=== PATIENT | female | born 1955 | race Two or more races ===

== ENCOUNTER 2019-05-27 08:52 | Inpatient (IN) | payer MEDICAID, OTHER ==
[~2019-05-27] VITALS: Ht 160 cm; Wt 69.2 kg
[2019-05-27] MEDS ORDERED: aspirin PO (09:21)
[2019-05-27] MEDS ORDERED: IBUP-1902 PO (09:21)
--- NOTE | 2019-05-27 09:29 | NUR ---
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
[2019-05-27 09:44] LABS: BASOPHILS % (AUTO) 1 % (0-1); EOSINOPHILS # (AUTO) 0.17 x10^3/uL (0-0.4); EOSINOPHILS % (AUTO) 1 % (1-7); LYMPHOCYTES # (AUTO) 3.07 x10^3/uL (1-3.4); LYMPHOCYTES % (AUTO) 25 % (22-44); MD NO; MEAN CORPUSCULAR HEMOGLOBIN 28.8 pg (27.0-34.8); MEAN CORPUSCULAR HGB CONC 33.1 g/dL (32.4-35.8); MEAN CORPUSCULAR VOLUME 86.9 fL (80-100); MEAN PLATELET VOLUME 7.9 fL (7.4-10.4); MONOCYTES # (AUTO) 0.82 x10^3/uL (0.2-0.8); MONOCYTES % (AUTO) 7 % (2-9); NEUTROPHILS # (AUTO) 7.98 x10^3/uL (1.8-6.8); NEUTROPHILS % (AUTO) 66 % (42-75); PLATELET COUNT 422 x10^3/uL (130-400); RED BLOOD COUNT 5.71 x10^6/uL (3.82-5.3); RED CELL DISTRIBUTION WIDTH 13.8 % (9.6-15.2)
[2019-05-27 09:55] LABS: ALANINE AMINOTRANSFERASE 36 U/L (12-78); ALBUMIN 3.6 g/dL (3.4-5.0); ANION GAP 5 mmol/L (5-15); CALCIUM 8.9 mg/dL (8.5-10.1); CHLORIDE 110 mmol/L (98-107); CREATININE 0.72 mg/dL (0.55-1.02)
[2019-05-27 09:58] LABS: ALKALINE PHOSPHATASE 101 U/L (45-117); BILIRUBIN,TOTAL 0.5 mg/dL (0.2-1.0); TOTAL PROTEIN 7.9 g/dL (6.4-8.2)
--- NOTE | 2019-05-27 10:00 | NUR ---
LATE ENTRY FOR 1000: REPORT RECEIVED FROM EMS. PT PRESENTS TO ED WITH C/O LEFT SIDED WEAKNESS AND DIMINISHED SENSATION, THAT SHE FIRST NOTED UPON AWAKENING AT 0200 THIS AM. PT HAS MARKED LEFT SIDED WEAKNESS NOTED UPON ARRIVAL. PT DENIES PAIN AT THIS TIME, STATES SHE DID NOTE PAIN TO LEFT ARM AT 0200 BUT THIS HAS SINCE RESOLVED. PT IS A&OX4, RESPS EVEN AND UNLABORED, PUPILS EQUAL, ROUND AND REACTIVE. PT HAS LEFT ARM AND LEG DRIFT. FACE IS SYMMETRICAL. PT DENIES COUGH/FEVER/SORE THROAT/NAUSEA/VOMITING/DIARRHEA/SICK CONTACTS. PT DENIES PAIN AT THIS TIME. PT PLACED ON ALL MONITORS ON ARRIVAL, EKG TAKEN ON ARRIVAL BY EDT. 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 RIGHT EJ PIV PLACED WITH KO LAW'S OK. PT TOLERATED WELL. OK'D EJ USE FOR CT SCAN. PT TO CT WITH THIS RN AND MANAGER BRAND AT THIS TIME.
[2019-05-27] MEDS ORDERED: OMNIPAQUE 350 MG/ML, 50 ML BOTTLE ONE (10:36)
--- NOTE | 2019-05-27 11:00 | NUR ---
PT TOLERATED CT'S WELL. PT BACK IN ROOM, ALL MONITORS IN PLACE. CT RESULTS REVIEWED BY [employer] LAW. PT TOOK 81 MG ASA THIS AM, AT 0200. EDBMP [employer] LAW NOTIFIED. TO ORDER AN ADDITIONAL 162 MG ASA. PT REMAINS A&O, RESPS EVEN AND UNLABORED, NSR ON EDUCATIONAL TECHNOLOGY COORDINATOR. PT DENIES PAIN. PT ABLE TO CONVERSE IN FULL SENTENCES WITHOUT DIFFICULTY. AWAITING ADMIT ORDER AT THIS TIME.
--- NOTE | 2019-05-27 11:12 | NUR ---
PT'S DAUGHTER CALLED TO UPDATE ON POC, WITH PATIENT'S PERMISSION.
[2019-05-27] MEDS ORDERED: ASPIRIN 81 MG TABLET CHEW PO ONE (11:30)
--- NOTE | 2019-05-27 11:30 | NUR ---
MD LAW NOTIFIED WBC 12.1, MD DECLINED TO GIVE ANY FURTHER ORDERS.
--- NOTE | 2019-05-27 11:37 | NUR ---
MD REDDY AT BEDSIDE FOR ADMIT ASSESSMENT. POC AND RESULTS EXPLAINED UTILIZING [employer]OOK [id number].
--- NOTE | 2019-05-27 11:37 | NUR ---
LATE ENTRY FOR 1137: MD REDDY NOTIFIED OF BP 183/133, BP TREND REVIEWED WITH . NOTIFIED RN UNABLE TO OBTAIN MANUAL OR AUTOMATIC BP READING OF RIGHT ARM, ATTEMPTED AND WAS UNABLE TO OBTAIN MANUAL BP TO RIGHT ARM. STATES HE IS ORDERING VASCULAR US IMAGING TO EVALUATE.
--- NOTE | 2019-05-27 11:45 | NUR ---
PT TAKEN TO MRI.
[2019-05-27] MEDS ORDERED: ONDANSETRON 4 MG TABLET PO PRN (12:00)
[2019-05-27] MEDS ORDERED: ONDANSETRON 2MG/ML, 2ML IVPush PRN (12:00)
[2019-05-27] MEDS ORDERED: ASPIRIN 81 MG TABLET CHEW ONE (12:11)
[2019-05-27] MEDS ORDERED: GADOTERATE 7.5 MMOL/15 ML SYR ONE (12:30)
--- NOTE | 2019-05-27 12:43 | NUR ---
REPORT CALLED TO RECEIVING RN ELIECER PT REMAINS IN MRI.
--- NOTE | 2019-05-27 13:04 | NUR ---
PT BACK FROM MRI, BEDSIDE SWALLOW EVAL PASSED. PT MEDICATED PER EMAR WITH 162 MG ASA. NO S/SX ASPIRATION NOTED UPON ADMIN. PT IS A&OX4, LEFT SIDED WEAKNESS PERSISTS BUT IS NOT WORSE THAN LAST ASSESSMENT WITH MD REDDY. PT ABLE TO CONVERSE IN FULL SENTENCES WITHOUT DIFFICULTY. PT TRANSPORTED TO [facility] AT THIS TIME WITH TECH AND MONITOR. NADN AT TRANSPORT. Addendum: 05/27/19 at 1305 by CARLOS PT BACK FROM MRI, BEDSIDE SWALLOW EVAL PASSED. PT MEDICATED PER EMAR WITH 162 MG ASA. NO S/SX ASPIRATION NOTED UPON ADMIN. PT IS A&OX4, LEFT SIDED WEAKNESS PERSISTS BUT IS NOT WORSE THAN LAST ASSESSMENT WITH MD REDDY. NEURO REASSESSMENT PERFORMED, NO CHANGES AT THIS TIME. PT ABLE TO CONVERSE IN FULL SENTENCES WITHOUT DIFFICULTY. PT TRANSPORTED TO [facility] AT THIS TIME WITH TECH AND MONITOR. NADN AT TRANSPORT.
[2019-05-27] MEDS: NICOTINE 14MG/24 HR PATCH.TD24 TD SCH (13:21)
[2019-05-27 13:22] VITALS: BP 169/81
[2019-05-27 13:56] LABS: MICROSCOPIC AUTO
[2019-05-27 13:57] LABS: CULTURE INDICATED? YES
[2019-05-27] MEDS ORDERED: HEPARIN 25,000 UNITS/250ML PMX 250 ML IV PRN (14:00)
[2019-05-27] MEDS ORDERED: HEPARIN wt. based STROKE protocol MC PRN (14:00)
[2019-05-27] MEDS: NS + 20MEQ KCL 1,000 ML IV SCH (14:39)
[2019-05-27] MEDS: HEPARIN 25,000 UNITS/250ML PMX 250 ML IV PRN (15:48)
--- NOTE | 2019-05-27 15:58 | NUR ---
Rec: regular/thins; do not anticipate need for [employer] CONSULTANT intervention in regards to dysphagia at time of discharge. Addendum: 05/27/19 at 1558 by Jessica GOVEA Amended: Links added.
[2019-05-27 17:17] VITALS: BP 158/83
[2019-05-27 20:00] VITALS: BP 131/77
[2019-05-27] MEDS ORDERED: ATORVASTATIN 40 MG TABLET PO SCH (21:00)
[2019-05-27] MEDS ORDERED: ACETAMINOPHEN 325 MG TABLET ONE (21:13)
[2019-05-27] MEDS: ACETAMINOPHEN 325 MG TABLET PO PRN (21:15)
[2019-05-27] MEDS: ATORVASTATIN 80 MG TABLET PO SCH (21:15)
[2019-05-27 22:37] LABS: AMPHETAMINE SCREEN, URINE Negative (Negative); BARBITURATE SCREEN, URINE Negative (Negative); BENZODIAZEPINE SCREEN, URINE Negative (Negative); CANNABINOID SCREEN, URINE Negative (Negative); COCAINE SCREEN, URINE Negative (Negative); METHADONE SCREEN, URINE Negative (Negative); OPIATE SCREEN, URINE Negative (Negative)
[2019-05-28] MEDS: NS + 20MEQ KCL 1,000 ML IV SCH
[2019-05-28 01:13] VITALS: BP 112/69
[2019-05-28 05:14] LABS: CHOL/HDL RATIO 8.6; CHOLESTEROL, TOTAL 250 mg/dL (140-239); HDL CHOL % 12 % (28-40); HDL CHOLESTEROL (DIRECT) 29 mg/dL (40-60); TRIGLYCERIDES 447 mg/dL (50-200)
[2019-05-28 07:16] VITALS: BP 113/70
[2019-05-28] MEDS ORDERED: PHENOL THROAT SPRAY BOTTLE MM PRN (08:30)
[2019-05-28] MEDS: ASPIRIN 81 MG TABLET CHEW PO/NG SCH (08:33)
[2019-05-28] MEDS: FENOFIBRATE 145 MG TABLET PO SCH (08:34)
[2019-05-28 13:03] VITALS: BP 107/63
[2019-05-28] MEDS: NICOTINE 14MG/24 HR PATCH.TD24 TD SCH (13:57)
[2019-05-28] MEDS: CEFTRIAXONE PMX 1GM/50ML 50 ML IV SCH (14:39)
[2019-05-28] MEDS: HEPARIN 25,000 UNITS/250ML PMX 250 ML IV PRN (16:51)
[2019-05-28 16:59] VITALS: BP 126/75
[2019-05-28 20:26] VITALS: BP 125/76
[2019-05-28] MEDS: ATORVASTATIN 80 MG TABLET PO SCH (21:40)
[2019-05-29 02:30] VITALS: BP 130/76
[2019-05-29 05:54] LABS: BASOPHILS # (AUTO) 0.09 x10^3/uL (0-0.1); BASOPHILS % (AUTO) 1 % (0-1); EOSINOPHILS # (AUTO) 0.21 x10^3/uL (0-0.4); EOSINOPHILS % (AUTO) 2 % (1-7); LYMPHOCYTES # (AUTO) 4.24 x10^3/uL (1-3.4); LYMPHOCYTES % (AUTO) 37 % (22-44); MD NO; MEAN CORPUSCULAR HEMOGLOBIN 28.9 pg (27.0-34.8); MEAN CORPUSCULAR HGB CONC 33.3 g/dL (32.4-35.8); MEAN CORPUSCULAR VOLUME 86.8 fL (80-100); MEAN PLATELET VOLUME 8.5 fL (7.4-10.4); MONOCYTES # (AUTO) 0.87 x10^3/uL (0.2-0.8); MONOCYTES % (AUTO) 8 % (2-9); NEUTROPHILS # (AUTO) 6.19 x10^3/uL (1.8-6.8); NEUTROPHILS % (AUTO) 53 % (42-75); PLATELET COUNT 357 x10^3/uL (130-400); RED BLOOD COUNT 5.32 x10^6/uL (3.82-5.3); RED CELL DISTRIBUTION WIDTH 13.6 % (9.6-15.2)
[2019-05-29 06:07] LABS: ANION GAP 7 mmol/L (5-15); CHLORIDE 112 mmol/L (98-107); CREATININE 0.71 mg/dL (0.55-1.02)
[2019-05-29 06:36] LABS: FREE T4 (FREE THYROXINE) 1.25 ng/dL (0.76-1.46)
[2019-05-29 07:04] VITALS: BP 120/72
[2019-05-29] MEDS: FENOFIBRATE 145 MG TABLET PO SCH (08:39)
[2019-05-29] MEDS: ASPIRIN 81 MG TABLET CHEW PO/NG SCH (08:39)
[2019-05-29] MEDS: ACETAMINOPHEN 325 MG TABLET PO PRN ×2 (08:40→21:13)
[2019-05-29] MEDS: HEPARIN 25,000 UNITS/250ML PMX 250 ML IV PRN (11:36)
[2019-05-29 13:43] VITALS: BP 123/75
[2019-05-29] MEDS: CEFTRIAXONE PMX 1GM/50ML 50 ML IV SCH (13:45)
[2019-05-29] MEDS: NICOTINE 14MG/24 HR PATCH.TD24 TD SCH (13:45)
[2019-05-29] MEDS ORDERED: OMNIPAQUE 350 MG/ML, 75ML BOTTLE ONE (13:47)
[2019-05-29] MEDS ORDERED: LACTULOSE 20 GM/30 ML UDC PO PRN (15:00)
[2019-05-29] MEDS ORDERED: BISACODYL 10 MG SUPP PR PRN (15:00)
[2019-05-29 18:58] VITALS: BP 106/67
[2019-05-29] MEDS: SENNA/DOCUSATE TABLET PO SCH (21:13)
[2019-05-29] MEDS: ATORVASTATIN 80 MG TABLET PO SCH (21:13)
[2019-05-30 00:30] VITALS: BP 104/71
[2019-05-30] MEDS: HEPARIN 25,000 UNITS/250ML PMX 250 ML IV PRN (05:20)
[2019-05-30 06:43] VITALS: BP 111/62
[2019-05-30] MEDS: ACETAMINOPHEN 325 MG TABLET PO PRN (08:21)
[2019-05-30] MEDS: ASPIRIN 81 MG TABLET CHEW PO/NG SCH (08:22)
[2019-05-30] MEDS: DOCUSATE 50 MG/5 ML, 10ML UDC NG SCH (08:22)
[2019-05-30] MEDS: FENOFIBRATE 145 MG TABLET PO SCH (08:22)
[2019-05-30 12:54] VITALS: BP 110/68
[2019-05-30] MEDS: CLOPIDOGREL 75 MG TABLET PO SCH (14:02)
[2019-05-30] MEDS: NICOTINE 14MG/24 HR PATCH.TD24 TD SCH (14:02)
[2019-05-30] MEDS: CEFTRIAXONE PMX 1GM/50ML 50 ML IV SCH (14:03)
[2019-05-30 19:03] VITALS: BP 121/67
[2019-05-30] MEDS: SENNA/DOCUSATE TABLET PO SCH (21:24)
[2019-05-30] MEDS: ATORVASTATIN 80 MG TABLET PO SCH (21:24)
[2019-05-31 01:22] VITALS: BP 123/72
[2019-05-31 07:07] LABS: ANION GAP 7 mmol/L (5-15); CALCIUM 9.2 mg/dL (8.5-10.1); CHLORIDE 110 mmol/L (98-107); CREATININE 0.85 mg/dL (0.55-1.02)
[2019-05-31 07:10] VITALS: BP 119/71
[2019-05-31 07:10] LABS: BASOPHILS # (AUTO) 0.05 x10^3/uL (0-0.1); BASOPHILS % (AUTO) 0 % (0-1); EOSINOPHILS # (AUTO) 0.25 x10^3/uL (0-0.4); EOSINOPHILS % (AUTO) 2 % (1-7); LYMPHOCYTES % (AUTO) 34 % (22-44); MD NO; MEAN CORPUSCULAR HEMOGLOBIN 28.5 pg (27.0-34.8); MEAN CORPUSCULAR HGB CONC 32.9 g/dL (32.4-35.8); MEAN CORPUSCULAR VOLUME 86.5 fL (80-100); MEAN PLATELET VOLUME 8.8 fL (7.4-10.4); MONOCYTES # (AUTO) 0.84 x10^3/uL (0.2-0.8); MONOCYTES % (AUTO) 7 % (2-9); NEUTROPHILS # (AUTO) 6.38 x10^3/uL (1.8-6.8); NEUTROPHILS % (AUTO) 56 % (42-75); PLATELET COUNT 388 x10^3/uL (130-400); RED BLOOD COUNT 5.67 x10^6/uL (3.82-5.3); RED CELL DISTRIBUTION WIDTH 13.8 % (9.6-15.2)
[2019-05-31] MEDS: FENOFIBRATE 145 MG TABLET PO SCH (08:40)
[2019-05-31] MEDS: CLOPIDOGREL 75 MG TABLET PO SCH (08:40)
[2019-05-31] MEDS: ASPIRIN 81 MG TABLET CHEW PO/NG SCH (08:41)
[2019-05-31] MEDS: DOCUSATE 50 MG/5 ML, 10ML UDC NG SCH (08:56)
[2019-05-31 12:40] VITALS: BP 138/76
[2019-05-31] MEDS: NICOTINE 14MG/24 HR PATCH.TD24 TD SCH (14:14)
[2019-05-31] MEDS: CEFTRIAXONE PMX 1GM/50ML 50 ML IV SCH (14:14)
[2019-05-31] MEDS ORDERED: FENO145T19 PO (14:51)
[2019-05-31] MEDS ORDERED: NICO-486 TD (14:51)
[2019-05-31] MEDS ORDERED: CLOP75TA PO (14:51)
[2019-05-31] MEDS ORDERED: ALPR0.254 PO (14:51)
[2019-05-31] MEDS ORDERED: ASPI-515 PO/NG (14:51)
[2019-05-31] MEDS ORDERED: ATOR-2 PO (14:51)
[2019-05-31 19:07] VITALS: BP 137/79
[2019-05-31] MEDS: ATORVASTATIN 80 MG TABLET PO SCH (21:36)
[2019-06-01 01:19] VITALS: BP 111/70
[2019-06-01 06:21] VITALS: BP 146/70
[2019-06-01] MEDS: CLOPIDOGREL 75 MG TABLET PO SCH (09:27)
[2019-06-01] MEDS: DOCUSATE 50 MG/5 ML, 10ML UDC NG SCH (09:27)
[2019-06-01] MEDS: FENOFIBRATE 145 MG TABLET PO SCH (09:27)
[2019-06-01] MEDS: ASPIRIN 81 MG TABLET CHEW PO/NG SCH (09:27)
== END 2019-06-01 11:33 | DRG 65 ==
LOC: ED 10:32 → SUATTDRO 11:23 → EDIP 11:33 → 4EST 13:04
PROVIDERS: ADMIT Hospitalist; ATTEND Family Medicine
DX: I63.9 Cerebral infarction, unspecified (principal); N39.0 Urinary tract infection, site not specified; F32.9 Major depressive disorder, single episode, unspecified; I10 Essential (primary) hypertension; E66.9 Obesity, unspecified; F17.200 Nicotine dependence, unspecified, uncomplicated; F41.9 Anxiety disorder, unspecified; E78.1 Pure hyperglyceridemia; B96.20 Unspecified Escherichia coli [E. coli] as the cause of diseases classified elsewhere; Z68.27 Body mass index [BMI] 27.0-27.9, adult
CPT/HCPCS: 36415; 70450; 70496; 70498; 70553; 71045; 80048; 80053; 80061; 80307; 81001; 83036; 83880; 84439; 84443; 84481; 85025; 85520; 87077; 87086; 87186; 93005; 93306; 93931; 99285; G0378; J0696; J3480; Q9967; 92523-GN; A9575

== ENCOUNTER 2020-07-31 11:00 | Emergency (ER) | payer MEDICAID ==
[~2020-07-31] VITALS: Ht 154.9 cm; Wt 63.5 kg
[~2020-07-31 11:00] MED LIST: ALPR0.254 PO; ASPI-963 PO/NG; ATOR-2 PO; CLOP75TA PO; FENO145T19 PO; IBUP-1902 PO; NICO-486 TD; aspirin PO
[2020-07-31 11:03] VITALS: BP 137/58
--- NOTE | 2020-07-31 11:54 | NUR ---
him specialist: Pt ambulatory to room from lobby at this time.
[2020-07-31] MEDS ORDERED: IBUPROFEN 600 MG TABLET ONE (12:49)
--- NOTE | 2020-07-31 12:59 | NUR ---
FSBG 78. PT PROVIDED APPLE JUICE.
[2020-07-31] MEDS ORDERED: IBUPROFEN 200 MG TABLET PO ONE (13:00)
[2020-07-31] MEDS ORDERED: NEOSPORIN OINT. PKT 1 PACKET ONE (13:19)
--- NOTE | 2020-07-31 13:25 | NUR ---
PAOLA COLLECTED WOUND CX AND SENT TO LAB
== END 2020-07-31 13:27 | disposition home or self-care (01) ==
LOC: ED 12:17
DX: M79.662 Pain in left lower leg (principal); F17.210 Nicotine dependence, cigarettes, uncomplicated; Z86.73 Personal history of transient ischemic attack (TIA), and cerebral infarction without residual deficits; Z90.49 Acquired absence of other specified parts of digestive tract
CPT/HCPCS: 82962; 87070; 87077; 87186; 87205; 99283; 99284; 99406

== ENCOUNTER 2020-08-15 12:40 | Outpatient (CLI) | payer MEDICAID | END 2020-08-15 23:59 | disposition home or self-care (01) | LOC: WOUND 12:40 | PROVIDERS: ATTEND Internal Medicine | DX: I83.028 Varicose veins of left lower extremity with ulcer other part of lower leg (principal); L97.821 Non-pressure chronic ulcer of other part of left lower leg limited to breakdown of skin; I83.022 Varicose veins of left lower extremity with ulcer of calf; L97.222 Non-pressure chronic ulcer of left calf with fat layer exposed; R73.03 Prediabetes; F17.210 Nicotine dependence, cigarettes, uncomplicated; Z86.73 Personal history of transient ischemic attack (TIA), and cerebral infarction without residual deficits; Z79.82 Long term (current) use of aspirin; Z79.899 Other long term (current) drug therapy; Z90.49 Acquired absence of other specified parts of digestive tract; Z88.5 Allergy status to narcotic agent | CPT/HCPCS: 97597; 99215 ==

== ENCOUNTER → 2020-08-22 | Outpatient (CLI) | payer MEDICAID | END | disposition home or self-care (01) | LOC: WOUND 12:56 | PROVIDERS: ATTEND Internal Medicine | DX: I87.312 Chronic venous hypertension (idiopathic) with ulcer of left lower extremity (principal); L97.222 Non-pressure chronic ulcer of left calf with fat layer exposed; L97.821 Non-pressure chronic ulcer of other part of left lower leg limited to breakdown of skin; F17.210 Nicotine dependence, cigarettes, uncomplicated; Z90.49 Acquired absence of other specified parts of digestive tract; Z86.73 Personal history of transient ischemic attack (TIA), and cerebral infarction without residual deficits; Z88.5 Allergy status to narcotic agent | CPT/HCPCS: 97597 ==

== ENCOUNTER 2020-09-05 08:39 | Outpatient (CLI) | payer MEDICAID | END 2020-09-05 23:59 | disposition home or self-care (01) | LOC: WOUND 08:39 | PROVIDERS: ATTEND Internal Medicine | DX: I83.028 Varicose veins of left lower extremity with ulcer other part of lower leg (principal); L97.822 Non-pressure chronic ulcer of other part of left lower leg with fat layer exposed; I83.022 Varicose veins of left lower extremity with ulcer of calf; L97.222 Non-pressure chronic ulcer of left calf with fat layer exposed; R73.03 Prediabetes; F17.210 Nicotine dependence, cigarettes, uncomplicated; Z86.73 Personal history of transient ischemic attack (TIA), and cerebral infarction without residual deficits; Z79.82 Long term (current) use of aspirin; Z79.899 Other long term (current) drug therapy; Z90.49 Acquired absence of other specified parts of digestive tract; Z88.5 Allergy status to narcotic agent | CPT/HCPCS: 99212 ==

== ENCOUNTER 2020-09-26 14:19 | Outpatient (CLI) | payer MEDICAID | END 2020-09-26 23:59 | disposition home or self-care (01) | LOC: WOUND 14:19 | PROVIDERS: ATTEND Internal Medicine | DX: I87.312 Chronic venous hypertension (idiopathic) with ulcer of left lower extremity (principal); L97.222 Non-pressure chronic ulcer of left calf with fat layer exposed; L97.822 Non-pressure chronic ulcer of other part of left lower leg with fat layer exposed; F17.210 Nicotine dependence, cigarettes, uncomplicated; Z90.49 Acquired absence of other specified parts of digestive tract; Z86.73 Personal history of transient ischemic attack (TIA), and cerebral infarction without residual deficits; Z88.5 Allergy status to narcotic agent | CPT/HCPCS: 97597 ==

== ENCOUNTER 2020-10-02 12:53 | Outpatient (CLI) | payer MEDICAID | END 2020-10-02 23:59 | disposition home or self-care (01) | LOC: CVU 12:53 | PROVIDERS: ATTEND Internal Medicine | DX: I83.92 Asymptomatic varicose veins of left lower extremity (principal); L97.222 Non-pressure chronic ulcer of left calf with fat layer exposed | CPT/HCPCS: 93922; 93925; 93970 ==

== ENCOUNTER 2020-10-10 10:52 | Outpatient (CLI) | payer MEDICAID | END 2020-10-10 23:59 | disposition home or self-care (01) | LOC: WOUND 10:52 | PROVIDERS: ATTEND Internal Medicine | DX: I83.028 Varicose veins of left lower extremity with ulcer other part of lower leg (principal); L97.822 Non-pressure chronic ulcer of other part of left lower leg with fat layer exposed; I83.022 Varicose veins of left lower extremity with ulcer of calf; L97.222 Non-pressure chronic ulcer of left calf with fat layer exposed; R73.03 Prediabetes; F17.290 Nicotine dependence, other tobacco product, uncomplicated; Z86.73 Personal history of transient ischemic attack (TIA), and cerebral infarction without residual deficits; Z79.82 Long term (current) use of aspirin; Z79.899 Other long term (current) drug therapy; Z90.49 Acquired absence of other specified parts of digestive tract | CPT/HCPCS: 97597 ==

== ENCOUNTER 2020-10-20 09:58 | Outpatient (CLI) | payer MEDICAID | END 2020-10-20 23:59 | disposition home or self-care (01) | LOC: WOUND 09:58 | PROVIDERS: ATTEND Internal Medicine | DX: I87.312 Chronic venous hypertension (idiopathic) with ulcer of left lower extremity (principal); L97.822 Non-pressure chronic ulcer of other part of left lower leg with fat layer exposed; L97.222 Non-pressure chronic ulcer of left calf with fat layer exposed; R73.03 Prediabetes; F17.210 Nicotine dependence, cigarettes, uncomplicated; Z86.73 Personal history of transient ischemic attack (TIA), and cerebral infarction without residual deficits; Z79.82 Long term (current) use of aspirin; Z79.899 Other long term (current) drug therapy; Z90.49 Acquired absence of other specified parts of digestive tract; Z88.5 Allergy status to narcotic agent | CPT/HCPCS: 97602 ==

== ENCOUNTER 2020-10-27 13:35 | Outpatient (CLI) | payer MEDICAID | END 2020-10-27 23:59 | disposition home or self-care (01) | LOC: WOUND 13:35 | PROVIDERS: ATTEND Internal Medicine | DX: I83.028 Varicose veins of left lower extremity with ulcer other part of lower leg (principal); L97.822 Non-pressure chronic ulcer of other part of left lower leg with fat layer exposed; I83.022 Varicose veins of left lower extremity with ulcer of calf; L97.222 Non-pressure chronic ulcer of left calf with fat layer exposed; R73.03 Prediabetes; F17.290 Nicotine dependence, other tobacco product, uncomplicated; Z86.73 Personal history of transient ischemic attack (TIA), and cerebral infarction without residual deficits; Z79.82 Long term (current) use of aspirin; Z79.899 Other long term (current) drug therapy; Z90.49 Acquired absence of other specified parts of digestive tract; Z88.5 Allergy status to narcotic agent | CPT/HCPCS: 97597 ==